=== PATIENT | female | born 1990 | race Caucasian/White ===

== ENCOUNTER 2023-10-12 16:48 | Emergency (ER) | payer OTHER, SELFPAY ==
[2023-10-12 16:51] VITALS: BP 134/83
[2023-10-12 17:31] VITALS: BP 139/79
--- NOTE | 2023-10-12 17:52 | ED.GENMED ---
History of Present Illness
<Sachi Ortiz PA-C - Last Filed: 10/17/23 09:53>
General
Chief Complaint: Abdominal Pain
Source: patient
Exam Limitations: none
Time Seen by Provider: 10/12/23 17:22
Nursing documentation reviewed up to this point in time: agreed with
Travel History
Have you had any contact with someone who has COVID-19?: No
Do you have any symptoms of coronavirus? Fever > 100 degrees, chills, cough, shortness of breath, sore throat, loss of taste or smell, muscle aches, or headache?: No
History of Present Illness
History of Present Illness:
Patient is a 33 year old female presenting for evaluation of lower abdominal pain for the past 3 days. Pain waxes and wanes in severity but is most significant in the right lower quadrant. She does report a similar pain last month that lasted
approximately 2 days and resolved on its own. Pain is associated with some mild nausea, but no vomiting. Bowel movements have been regular. Patient denies any fever, chills, urinary symptoms, or back pain. Patient was seen in urgent care earlier
today for bite occurring at work earlier today. She mentioned her abdominal pain and they referred her to emergency department for imaging. They esthela basic labs and UA at .
Patient has an IUD and has irregular periods.
Patient has no history of abdominal surgeries or ovarian cysts
Past History
<Sachi Ortiz PA-C - Last Filed: 10/17/23 09:53>
Past History
ED Past Medical History: GERD, Psychiatric and Other (stomach ulcers, choledocholithiasis, gallstone pancreatitis)
ED Past Surgical History: Tonsilectomy and Other (adenoidectomy)
Social History
Tobacco: Non-smoker
Alcohol: None
Drug: None
Personal:
Living: with family
Phy Exam
<Sachi Ortiz PA-C - Last Filed: 10/17/23 09:53>
Physical Exam
Physical Exam:
General: Well appearing and non-toxic
Vitals: Vital signs stable, afebrile
HEENT: Atraumatic, normocephalic; pupils equal round and reactive to light bilaterally, extraocular muscles intact; protecting airway
Neck: appears supple, no JVD
CV: RRR, heart sounds normal, no evidence of cyanosis
Resp: Lungs clear, No accessory muscle use
Abd: Soft, mildly tender in right lower quadrant without rebound or guarding, Non-distended, negative Rovsing; no CVA tenderness
Extremities: No deformities, no evidence of cyanosis or edema
Neuro: alert and oriented to person, place, time; speech normal, no focal motor deficits
Psych: Normal affect
Skin: Intact, no rashes
Course
<Sachi Ortiz PA-C - Last Filed: 10/17/23 09:53>
Orders/Labs/Results
Orders:
Orders
10/12/23 17:53
Ketorolac [Toradol] 15 mg IV NOW STA
Ondansetron Injectable [Zofran] 4 mg IV NOW STA
10/12/23 17:54
CT Abd/Pel (IV only)-[facility] only Urgent
Comment: labs at prior to arrival: urine HCG neg, Cr 0.7
Reason For Exam: RLQ pain; hx cholecystectomy
10/12/23 17:55
0.9% Sodium Chloride 500 ml [Nss] 500 ml IV BOLUS
US Pelvis W Transvag Combined Urgent
Reason For Exam: RLQ pain
10/12/23 18:36
0.9% Sodium Chloride 500 ml [Nss] 500 ml IV BOLUS
Vital Signs
Initial and Last Documented VS:
Initial Vital Signs
Temp Pulse Resp BP Pulse Ox
98.5 F 84 18 134/83 100
10/12/23 16:51 10/12/23 16:51 10/12/23 16:51 10/12/23 16:51 10/12/23 16:51
Last Documented Vital Signs
Temp Pulse Resp BP Pulse Ox
98.5 F 84 18 127/68 100
10/12/23 16:51 10/12/23 16:51 10/12/23 16:51 10/12/23 21:00 10/12/23 21:00
<Yuniel Herring DO - Last Filed: 10/12/23 19:24>
Orders/Labs/Results
Orders:
Orders
10/12/23 17:53
Ketorolac [Toradol] 15 mg IV NOW STA
Ondansetron Injectable [Zofran] 4 mg IV NOW STA
10/12/23 17:54
CT Abd/Pel (IV only)-[facility] only Urgent
Comment: labs at prior to arrival: urine HCG neg, Cr 0.7
Reason For Exam: RLQ pain; hx cholecystectomy
10/12/23 17:55
0.9% Sodium Chloride 500 ml [Nss] 500 ml IV BOLUS
US Pelvis W Transvag Combined Urgent
Reason For Exam: RLQ pain
10/12/23 18:36
0.9% Sodium Chloride 500 ml [Nss] 500 ml IV BOLUS
Vital Signs
Initial and Last Documented VS:
Initial Vital Signs
Temp Pulse Resp BP Pulse Ox
98.5 F 84 18 134/83 100
10/12/23 16:51 10/12/23 16:51 10/12/23 16:51 10/12/23 16:51 10/12/23 16:51
Last Documented Vital Signs
Temp Pulse Resp BP Pulse Ox
98.5 F 84 18 127/68 100
10/12/23 16:51 10/12/23 16:51 10/12/23 16:51 10/12/23 21:00 10/12/23 21:00
<Sachi Ortiz PA-C - Last Filed: 10/17/23 09:53>
MDM/Problems Addressed
Differential Diagnosis Includes:
appendicitis, nephrolithiasis, ovarian cyst, mittleschmerz, ovarian torsion, UTI, constipation, pyelonephritis
MDM/Problems Addressed:
Patient is a 33 year old female presenting for evaluation of right lower quadrant pain for the past few days with associated nausea. Patient denies any vomiting, constipation, diarrhea, urinary symptoms, fever or chills. Patient had similar pain
last month which resolved on its own. Patient has IUD and abnormal periods. Patients vital signs are stable. Physical exam as documented above. She has mild tenderness in right lower quadrant without any rebound or guarding. She came from urgent
care where she had basic labs and UA. CBC and BMP show no clinically significant abnormalities. UA shows no evidence of infection, negative.
Although liver enzymes not obtained, PE not concerning for liver/gallbladder etiology- very low suspicion.
Will start IVF, toradol for pain. Will get CT abdomen and pelvic US. Will reassess
CT and US show no acute findings. Cannot exclude ruptured ovarian cyst. Patient remains stable while in emergency department. No indication for admission. Return precautions discussed. She will follow-up with PCP / OBGYN.
Chronic conditions affecting care:
N/A
Acute Exacerbation and/or Progression of Chronic Illness:
N/A
<Sachi Ortiz PA-C - Last Filed: 10/17/23 09:53>
*Radiology
Radiology exam reviewed: preliminary read by ED provider and radiology read reviewed
*Pulse Oximetry
Patient hypoxic: no
*Dobby Loom Weaver Interpretation
Rate: Dobby Loom Weaver- N/A
*Critical Care Note
Total Time (30-74mins, 75-104mins- exclusive of procedures): Not Applicable
ED Attending Note
<Sachi Ortiz PA-C - Last Filed: 10/17/23 09:53>
-
Portions of this chart may have been created with voice recognition software.� Occasional wrong word or��sound alike� substitutions may have occurred due to the inherent limitations of voice recognition software.
<Yuniel Herring, DO - Last Filed: 10/12/23 19:24>
ED Attending Note
Patient seen and examined by attending physician: Yes
I performed the substantive portion of visit, reviewed & personally made and approve the management plan that is documented in note by myself or KAJAL.: Yes
I performed a history and physical exam of patient and discussed management with resident, I reviewed resident's note and agree with documented findings and plan of care.: Yes
ED Attending Note:
I evaluated the patient at bedside. The patient has only mild tenderness in the right lower quadrant. CT imaging personally reviewed which shows no evidence for appendicitis. Ultrasound imaging pending.
Discharge Plan
Departure
Patient Disposition: Home (Routine Discharge)
Date of Disposition: 10/12/23
Time of Disposition: 20:50
Patient with high blood pressure during this ER visit?: Yes
Condition: Good
Covid-19: Not Applicable
Discharge Problem:
Abdominal pain
Instructions: Abdominal Pain, BLOOD PRESSURE
Prescriptions:
New
tramadol 50 mg tablet
50 mg PO Q8H PRN (Reason: Pain) Qty: 8 0RF
No Action
prenat.vits,miguel,rib-pkuk-rnqwv Tablet
1 tab PO DAILY
dicyclomine 20 mg Tablet
20 mg PO BID PRN (Reason: IBS)
Linzess 290 mcg Capsule
290 mcg PO DAILY
diphenhydramine-acetaminophen [Tylenol PM Extra Strength] 25-500 mg Tablet
1 tab PO HS PRN (Reason: sleep)
bupropion HCl [Wellbutrin XL] 150 mg Tablet Extended Release 24 Hr
150 mg PO DAILY
duloxetine [Cymbalta] 20 mg Capsule,Delayed Release(Dr/Ec)
20 mg PO DAILY
ibuprofen 600 mg Tablet
600 mg PO Q6HPRN PRN (Reason: moderate pain/cramps) Qty: 0 0RF
acetaminophen 325 mg Tablet
650 mg PO Q4HPRN PRN (Reason: mild pain) Qty: 0 0RF
lorazepam [Ativan] 0.5 mg tablet
0.25 mg PO DAILY PRN (Reason: anxiety) Qty: 15 0RF
Referrals:
Talat Paniagua, [Family Provider] -
Activity Restrictions/Additional Instructions:
- Return to the emergency department with any high fevers, worsening/severe abdominal pain, intractable vomiting, severe back pain, worsening of current symptoms, or any other concerns
-As discussed�we are not able to exactly determine the cause of your abdominal pain today. It is possible that you had a recently ruptured ovarian cyst.
-You should take motrin as needed for discomfort. If pain is severe - you can take tramadol. This may make you drowsy.
-Follow up with primary care/ OBGYN for further evaluation/treatment if symptoms persist.
Interventions
Interventions:
*Risk Screen - Suicide Last Done: 10/12/23 16:51
*General Assessment Last Done: 10/12/23 16:51
*Neglect/Abuse Screening Last Done: 10/12/23 16:51
ED- Fall Risk Assessment Last Done: 10/12/23 17:36
*ED COVID-19 Vaccine History Last Done: 10/12/23 16:51
*Nursing Disposition Last Done: 10/12/23 21:11
QG-Zdvnii-Ibulevhult Assessment Last Done: 10/12/23 17:36
Discharge Date and Time
Discharge Date/Time: 10/12/23 21:13
[2023-10-12] MEDS: NSS 500 IV ×2 (18:12→19:12)
[2023-10-12] MEDS: ZOFRAN 4 MG IV (18:12)
[2023-10-12] MEDS: TORADOL 15 MG IV (18:13)
[2023-10-12 21:00] VITALS: BP 127/68
== END 2023-10-12 21:13 | disposition home or self-care (01) ==
LOC: EMR 16:48
PROVIDERS: EMERGENCY PHYSICIAN Emergency Medicine; FAMILY PHYSICIAN Family Medicine
DX: R10.9 Unspecified abdominal pain (principal); R11.2 Nausea with vomiting, unspecified; Z90.49 Acquired absence of other specified parts of digestive tract
CPT/HCPCS: 99284; 96374; 96375; 74177; 76830; 76856; Q9967

== ENCOUNTER 2024-02-07 12:56 | Emergency (ER) | payer OTHER, SELFPAY ==
[2024-02-07 12:59] VITALS: BP 124/72; BMI 28.8
[2024-02-07 13:20] LABS: % Basophils 0.3 % (0-2); % Eosinophils 1.3 % (0-6); % Immature Granulocytes 0.2 % (0-0.5); % Lymphocytes 31.7 % (20.5-51.1); % Neutrophils 62.5 % (42.2-75.2); Absolute Eosinophils 0.1 10^3/uL (0-0.7); Absolute Lymphocytes 2.8 10^3/uL (1.2-3.4); Absolute Monocytes 0.4 10^3/uL (0.1-0.6); Absolute Neutrophils 5.5 10^3/uL (1.4-6.5); Hematocrit 39.4 % (37.0-47.0); Hemoglobin 13.5 g/dL (12.0-16.0); Mean Corp Hgb Conc. 34.3 g/dL (33.0-37.0); Mean Corpuscular Hgb 29.2 pg (27.0-31.0); Mean Corpuscular Volume 85.1 fL (81.0-99.0); Mean Platelet Volume 9.7 fL (7.4-10.4); Nucleated Red Blood Cells % 0 %; Platelet Count 298 10^3/uL (130-400); Red Blood Cell Count 4.63 10^6/uL (4.20-5.40); Red Cell Dist. Width 12.6 % (11.5-14.5); White Blood Cell Count 8.9 10^3/uL (4.8-10.8)
[2024-02-07 13:39] LABS: ALT (SGPT) 23 U/L (0-35); AST (SGOT) 22 U/L (14-36); Albumin 4.8 g/dl (3.5-5.0); Alkaline Phosphatase 78 U/L (38-126); Blood Urea Nitrogen 10 mg/dl (7-17); Calcium 9.9 mg/dl (8.4-10.2); Carbon Dioxide 26 mmol/L (22-30); Chloride 104 mmol/L (98-107); Estimated Creatinine Clearance 117 ml/min; Glucose 89 mg/dl (70-99); Lipase 108 U/L (23-300); Potassium 4.1 mmol/L (3.5-5.1); Sodium 138 mmol/L (135-145); Total Bilirubin 0.4 mg/dl (0.2-1.3); Total Protein 7.6 g/dl (6.3-8.2); eGFR > 60.00
[2024-02-07 14:10] LABS: Urine Albumin Negative (Neg - Trace); Urine Bilirubin Negative (Negative); Urine Character Clear (Clear); Urine Color Yellow; Urine Glucose Negative (Negative); Urine Ketone Negative (Negative); Urine Leukocyte 1+ (Negative); Urine Nitrite Negative (Negative); Urine Occult Blood Negative (Negative); Urine Specific Gravity 1.005 (<1.030); Urine Urobilinogen Negative (Neg - 1+)
[2024-02-07 14:45] LABS: Urine Squamous Cell 16-20 /LPF (Few)
[2024-02-07 14:46] LABS: Urine Bacteria Few (Negative)
[2024-02-07 14:47] LABS: Urine Red Blood Cell None Seen /HPF (0-2)
[2024-02-07] MEDS: BENTYL 20 MG IM (15:24)
[2024-02-07] MEDS: ZOFRAN 4 MG IV (15:24)
[2024-02-07 15:59] LABS: HCG, Urine Qualitative Screen Negative
[2024-02-07] MEDS: TORADOL 15 MG IV (16:13)
[2024-02-07 17:53] VITALS: BP 114/71
--- NOTE | 2024-02-07 18:04 | ED.GENMED ---
History of Present Illness
General
Chief Complaint: Abdominal Pain
Source: patient and spouse
Exam Limitations: none
Time Seen by Provider: 02/07/24 14:53
Nursing documentation reviewed up to this point in time: agreed with
History of Present Illness
History of Present Illness:
34-year-old female with past medical history of gastric ulcers reflux presenting to the emergency department today with concerns of right-sided abdominal pain over the past 6 months including nausea some intermittent retching pain is increasing
today. Patient did start Ozempic around the same time symptoms started. Denies chest pain shortness of breath fevers.
Past History
Past History
ED Past Medical History: GERD, Psychiatric and Other (stomach ulcers, choledocholithiasis, gallstone pancreatitis)
ED Past Surgical History: Tonsilectomy and Other (adenoidectomy)
Social History
Tobacco: Non-smoker
Alcohol: None
Drug: None
Personal:
Living: with family
Review of Systems
Review of Systems
Allergies reviewed?: Yes
All Other Systems: ROS reviewed and negative except as documented in HPI and ROS
Phy Exam
Physical Exam
Physical Exam:
GENERAL: Alert , in no apparent distress
EYE: pupils equal and reactive
NECK: Supple, no significant adenopathy.
ENT: o/p clr, mmm.
CARDIAC: Regular rate and rhythm .
LUNGS: Clear breath sounds bilaterally, no acute respiratory distress, no wheezes/rales/rhonchi
ABDOMEN: Minimal discomfort to the right side of the abdomen but otherwise soft benign abdomen
NEUROLOGICAL: Alert and oriented, no focal neuro deficits
SKIN: Warm and dry, skin intact.
MUSCULOSKELETAL: No edema, well perfused.
PSYCH: Normal and appropriate interaction.
Course
Orders/Labs/Results
Orders:
Orders
02/07/24 13:09
Complete Blood Count/With Diff Urgent
Comprehensive Metabolic Panel Urgent
Lipase Urgent
02/07/24 14:05
HCG, Urine Qualitative Screen Urgent
Date Specimen was Collected: 02/07/24
Time Specimen was Collected: 14:03
Comment: ADD ON
UA Reflex to Culture [Urinalysis Reflex To Culture] Urgent
Date Specimen was Collected: 02/07/24
Time Specimen was Collected: 14:03
Urine Microscopic Reflex Cult Urgent
Urine Culture Urgent
DANIEL Source: U
Specimen Description:
Date Specimen was Collected: 02/07/24
Time Specimen was Collected: 14:03
02/07/24 15:09
CT Abd/Pel (IV only)-[facility] only Urgent
Comment:
Reason For Exam: rlq pain
Dicyclomine HCl [Bentyl] 20 mg IM NOW STA
Ondansetron Injectable [Zofran] 4 mg IV NOW STA
02/07/24 15:23
Add On- LAB Urgent
Tests Added?: urine hcg
02/07/24 16:08
Ketorolac [Toradol] 15 mg IV NOW STA
02/07/24 16:09
Ketorolac [Toradol] 15 mg .ROUTE .STK-MED ONE
Abnormal Lab Results
02/07/24
14:05
Leukocyte Esterase Rfl 1+ A
(Negative)
Urine Bacteria (Reflex) Few A
(Negative)
02/07/24 13:09
02/07/24 13:09
Vital Signs
Initial and Last Documented VS:
Initial Vital Signs
Temp Pulse Resp BP Pulse Ox
97.8 F 85 16 124/72 99
02/07/24 12:59 02/07/24 12:59 02/07/24 12:59 02/07/24 12:59 02/07/24 12:59
Last Documented Vital Signs
Temp Pulse Resp BP Pulse Ox
97.8 F 74 16 114/71 98
02/07/24 12:59 02/07/24 17:53 02/07/24 17:53 02/07/24 17:53 02/07/24 17:53
MDM/Problems Addressed
MDM/Problems Addressed:
34-year-old female presenting to the emergency department today with concerns of right side abdominal pain intermittently over the past 6 months. Worse today. Associated nausea no vomiting. Here vital signs are normal patient no obvious distress
for majority of her stay here labs unremarkable no white count no UTI CT scan showing possible enteritis or ileus but no emergent findings otherwise. This was discussed thoroughly with the patient who follow-up closely with GI and recommended to
take Bentyl as well as a bowel regimen. Return precautions were also given.
*Critical Care Note
Total Time (30-74mins, 75-104mins- exclusive of procedures): Not Applicable
ED Attending Note
-
Portions of this chart may have been created with voice recognition software.� Occasional wrong word or��sound alike� substitutions may have occurred due to the inherent limitations of voice recognition software.
Discharge Plan
Departure
Patient Disposition: Home (Routine Discharge)
Date of Disposition: 02/07/24
Time of Disposition: 18:04
Patient with high blood pressure during this ER visit?: No
Condition: Good
Covid-19: Not Applicable
Discharge Problem:
Ileus, Abdominal pain
Instructions: Abdominal Pain
Prescriptions:
No Action
prenat.vits,miguel,lzu-kvgx-eosai Tablet
1 tab PO DAILY
dicyclomine 20 mg Tablet
20 mg PO BID PRN (Reason: IBS)
Linzess 290 mcg Capsule
290 mcg PO DAILY
diphenhydramine-acetaminophen [Tylenol PM Extra Strength] 25-500 mg Tablet
1 tab PO HS PRN (Reason: sleep)
bupropion HCl [Wellbutrin XL] 150 mg Tablet Extended Release 24 Hr
150 mg PO DAILY
duloxetine [Cymbalta] 20 mg Capsule,Delayed Release(Dr/Ec)
20 mg PO DAILY
ibuprofen 600 mg Tablet
600 mg PO Q6HPRN PRN (Reason: moderate pain/cramps) Qty: 0 0RF
acetaminophen 325 mg Tablet
650 mg PO Q4HPRN PRN (Reason: mild pain) Qty: 0 0RF
lorazepam [Ativan] 0.5 mg tablet
0.25 mg PO DAILY PRN (Reason: anxiety) Qty: 15 0RF
tramadol 50 mg tablet
50 mg PO Q8H PRN (Reason: Pain) Qty: 8 0RF
Referrals:
Talat Paniagua DO [Family Provider] -
Interventions
Interventions:
*Risk Screen - Suicide Last Done: 02/07/24 12:59
*General Assessment Last Done: 02/07/24 13:57
*Neglect/Abuse Screening Last Done: 02/07/24 12:59
ED- Fall Risk Assessment Last Done: 02/07/24 18:05
*ED COVID-19 Vaccine History Last Done: 02/07/24 13:57
*Nursing Disposition Last Done: 02/07/24 18:05
IF-Dewriq-Ylxezjbleu Assessment Last Done: 02/07/24 13:57
Discharge Date and Time
Print Language: TAMAZIGHT
== END 2024-02-07 18:10 | disposition home or self-care (01) ==
LOC: EMR 12:56
PROVIDERS: Emergency Medicine; EMERGENCY PHYSICIAN Emergency Medicine; FAMILY PHYSICIAN Family Medicine
DX: K56.7 Ileus, unspecified (principal); R10.9 Unspecified abdominal pain; K21.9 Gastro-esophageal reflux disease without esophagitis; Z87.11 Personal history of peptic ulcer disease
CPT/HCPCS: 99284; 74177; 80053; 81003; 81015; 81025; 83690; 85025; 87086; Q9967

== ENCOUNTER → 2024-03-07 06:31 | Day surgery (SDC) | payer OTHER, SELFPAY | LOC: GI 06:31 | PROVIDERS: ATTENDING PHYSICIAN Internal Medicine | DX: R10.31 Right lower quadrant pain (principal); K63.5 Polyp of colon; R10.13 Epigastric pain; R11.2 Nausea with vomiting, unspecified; K44.9 Diaphragmatic hernia without obstruction or gangrene; K31.89 Other diseases of stomach and duodenum; K20.80 Other esophagitis without bleeding; K29.50 Unspecified chronic gastritis without bleeding | CPT/HCPCS: 45380; 43239; 88305; 88312; 88342 ==